=== PATIENT | male | born 1985 | race Caucasian/White ===

== ENCOUNTER 2021-10-31 20:53 | Observation (INO) | payer BC ==
[~2021-10-31] VITALS: Ht 193 cm; Wt 119.0 kg
[2021-10-31 21:37] LABS: BASO % 0.2 % (0.0-2.0); EOS # 0.1 K/mm3 (0.0-0.7); EOS % 0.7 % (0.0-4.0); GRAN # 5.3 K/mm3 (1.4-6.5); GRAN % 59.2 % (42.2-75.2); HEMATOCRIT 42.1 % (42.0-52.0); HEMOGLOBIN 14.4 g/dl (13.5-18.0); LYMPH % 33.1 % (20.0-51.0); MEAN CELL VOLUME 82 fl (80.0-100.0); MEAN CORPUSCULAR HEMOGLOBIN 28 pg (27-31); MEAN CORPUSCULAR HGB CONC 34 g/dl (33.0-37.0); MEAN PLATELET VOLUME 12.2 fl (7.4-10.4); MONO # 0.6 K/mm3 (0.1-0.6); MONO % 6.6 % (1.7-9.3); PLATELET COUNT 236 K/mm3 (130-400); RED BLOOD COUNT 5.11 M/mm3 (4.20-5.60); REDCELL DISTRIBUTION WIDTH-CV 11.9 % (11.5-14.5)
[2021-10-31 21:45] LABS: COLLECTION METHOD CLEAN CATCH
[2021-10-31 21:51] LABS: MUCOUS Present (NOT PRESENT); PH 5 (5-8); SQUAMOUS EPITHELIAL None Seen /hpf (0-10); URINE APPEARANCE Clear (CLEAR/HAZY); URINE BACTERIA None Seen /hpf (NONE SEEN); URINE BILIRUBIN Negative (NEGATIVE); URINE BLOOD Negative (NEGATIVE); URINE COLOR Yellow (YELLOW); URINE GLUCOSE Negative (NEGATIVE); URINE KETONE Negative (NEGATIVE); URINE LEUKOCYTE ESTERASE Negative (NEGATIVE); URINE NITRATE Negative (NEGATIVE); URINE PROTEIN(semi-quant) Negative (NEGATIVE); URINE RBC None Seen /hpf (0-2); URINE UROBILINOGEN Negative (NEGATIVE)
[2021-10-31 21:54] LABS: ALBUMIN 4.3 gm/dL (3.5-5.0); BILIRUBIN,TOTAL 0.6 mg/dL (0.2-1.2); CALCIUM 9.1 mg/dL (8.4-10.2); CREATININE, serum 1.09 mg/dL (0.72-1.25); POTASSIUM 3.3 mmol/L (3.5-4.5)
[2021-11-01] VITALS (8 sets, daily range): BP systolic 110–125; BP diastolic 61–70; PULSE 54–70; TEMP 97.9–98.8
--- NOTE | 2021-11-01 00:18 | NUR ---
Pt. arrived to the floor. Pt. is A&OX3, assessment complete. INT to lt. forearm patent, IV fluids and abx started at this time. Pt. reports pain at a 5 at this time. Pt. denies need for pain meds at this time. Call light within reach
--- NOTE | 2021-11-01 07:11 | NUR ---
awake resting in bed, bedside shift report received from ROBIN Redmond
--- NOTE | 2021-11-01 07:57 | NUR ---
Dr Ford in to see patient, will plan surgery later this am, full assessment completed, see interventions for further info, denies needs at this time
--- NOTE | 2021-11-01 09:00 | NUR ---
remains resting in bed, up to bathroom independently, now at bedside
--- NOTE | 2021-11-01 10:55 | NUR ---
to surgery per bed
--- NOTE | 2021-11-01 11:43 | NUR ---
Sw tried to completet intake, but pt was in OR. Try back later.
[2021-11-01] MEDS ORDERED: NORCO 325 MG-51 TAB PO ×2 (12:39→16:21)
--- NOTE | 2021-11-01 13:25 | NUR ---
returned to room per bed from PACU, awake and alert, IV infusing per gravity, SCDS on bilaterally, 3 lap sites with bandaids CD&I, at bedside
--- NOTE | 2021-11-01 13:45 | NUR ---
taking water well and without nausea, instructed on ordering regular food, verbalizes understanding
--- NOTE | 2021-11-01 14:21 | NUR ---
RUBEN met with pt to complete intake. Pt lives at home with , Amy [phone]. Pt is independent on all ADLs and does not use any DME. Pt gets his medications from [facility]. PT reports [facility] and not interested. DC plan: home w/spouse.
--- NOTE | 2021-11-01 14:45 | NUR ---
waiting on lunch sitting up in bed with at bedside
--- NOTE | 2021-11-01 15:44 | NUR ---
had general diet and tolerated well, assisted up to bathroom and voided qs, is ready to go home, notified Dr bourne regarding changing presciption to another pharmacy
--- NOTE | 2021-11-01 16:08 | NUR ---
medicated with hydrocodone 5mg 1 tab, discharge instructions given to patient and his , verbalizes understanding, discharged ambulatory
== END 2021-11-01 16:10 | disposition home or self-care (01) ==
LOC: COL.ER 20:53 → SURG 22:58
PROVIDERS: Emergency Medicine; ADMIT Surgery
DX: K35.80 Unspecified acute appendicitis (principal)
CPT/HCPCS: G0378; J1100; J1885; J2250; J2270; J2405; J2543; J2704; J3010; J7030; J7120; Q9967